=== PATIENT | female | born 1960 | race Caucasian/White ===

== ENCOUNTER 2016-12-27 12:11 | Emergency (ER) | payer OTHER ==
[2016-12-27 12:16] VITALS: TEMP 98; BMI 29.2
--- NOTE | 2016-12-27 12:21 | PDOC ---
History of Present Illness - General Chief Complaint: Chest Pain Stated Complaint: CHEST PAIN Time Seen by Provider: 12/27/16 12:20 History Source: Patient Exam Limitations: No Limitations - History of Present Illness Initial Comments: 12/27/16 14:56 56 yo has no primary physician sees Dr Chavira (Cardology), is on 4 meds to control her BP, has had four episodes of chest pain, diaphoresis and lightheadedness this morning, and, she just does not feel right. Most of these episodes happened at rest. Associated with some Nausea as well. Timing/Duration: 4-6 hours, intermittent Modifying Factors: improves with: other (nothing) Aspirin Received prior to arrival: Yes: no aspirin today Past History - Travel Traveled outside of the country in the last 30 days: No Close contact w/someone who was outside of country & ill: No - Past Medical History Allergies/Adverse Reactions: Allergies Allergy/AdvReac Type Severity Reaction Status Date / Time DAVID Inhibitors Allergy Severe Swelling Verified 12/27/16 12:12 [David Inhibitors] Home Medications: Ambulatory Orders Hydrochlorothiazide [Hydrodiuril] 25 mg PO DAILY #0 tablet 10/02/11 Amlodipine Besylate 10 mg PO DAILY 12/27/16 Hydralazine HCl 100 mg PO TID 12/27/16 Nebivolol HCl [Bystolic] 20 mg PO BID 12/27/16 Anemia: Yes (1999) HTN: Yes - Psycho/Social/Smoking Cessation Hx Anxiety: No Suicidal Ideation: No Smoking Status: No Smoking History: Never smoked Have you smoked in the past 12 months: No Number of Cigarettes Smoked Daily: 0 Hx Alcohol Use: Yes Drug/Substance Use Hx: No Substance Use Type: None Hx Substance Use Treatment: No Review of Systems - Review of Systems Able to Perform ROS?: Yes Is the patient limited Syrian proficient: No Constitutional: Yes: See HPI HEENTM: No: Symptoms Reported Respiratory: No: Symptoms reported Cardiac (ROS): Yes: See HPI ABD/GI: Yes: See HPI : No: Symptoms Reported Musculoskeletal: No: Symptoms Reported Integumentary: No: Symptoms Reported Neurological: No: Symptoms reported Psychiatric: No: Anxiety, Depression Hematologic/Lymphatic: No: Symptoms Reported All Other Systems: Reviewed and Negative *Physical Exam - Vital Signs Last Vital Signs Temp Pulse Resp BP Pulse Ox 98 F 77 18 129/78 100 12/27/16 12:12 12/27/16 12:12 12/27/16 12:12 12/27/16 12:12 12/27/16 12:12 - Physical Exam Comments: 12/27/16 15:15 56 you healthy appearing female, NAD, but Anxious/Fearful General Appearance: Yes: Nourished, Appropriately Dressed. No: Apparent Distress HEENT: positive: EOMI, MARLENE, Normal ENT Inspection. negative: Normal Voice Neck: positive: Tender, Trachea midline, Rigid, Supple Respiratory/Chest: positive: Lungs Clear, Normal Breath Sounds. negative: Chest Tender, Respiratory Distress Cardiovascular: positive: Regular Rhythm, Regular Rate Gastrointestinal/Abdominal: positive: Normal Bowel Sounds, Flat, Soft Lymphatic: negative: Adenopathy, Tenderness Musculoskeletal: positive: Normal Inspection Extremity: positive: Normal Capillary Refill, Normal Inspection, Normal Range of Motion Integumentary: positive: Normal Color, Dry, Warm Neurologic: positive: cobbler sole II-XII NML intact, Fully Oriented, Alert Heart Score/ECG Review - History History: Highly suspicious - Electrocardiogram EKG: Normal - Age Age: 45-65 - Risk Factors Risk Factors Heart Score: Yes Hx Hypertension - Troponin Troponin: </= normal limit ED Treatment Course - LABORATORY CBC & Chemistry Diagram: 12/27/16 12:28 12/27/16 12:28 Medical Decision Making - Medical Decision Making 12/27/16 15:[address] BILLS, Admit to hospitalist service, cardiology will be a consulting service 12/27/16 15:31 Dr Bills called back to tell us that patients primary care doctor is Dr Elder [facility] the patient tells me that she has no primary care doctor, in either case the patient is admitted to the [facility] hospitalist service in this instance. 12/27/16 15:55 Patient has decided after being seen by the scheduling clerk that she can not stay and she is signing out AMA. Risk of sudden cardiac and heart attack explained to patient and she understands that she is taking these risks upon herself. *DC/Admit/Observation/Transfer Diagnosis at time of Disposition: ACS (acute coronary syndrome) Chest pain Qualifiers: Chest pain type: unspecified Qualified Code(s): R07.9 - Chest pain, unspecified - Discharge Dispostion Disposition: AGAINST MEDICAL ADVICE Condition at time of disposition: Improved Admit: Yes
[2016-12-27 13:16] LABS: ALBUMIN 3.7 g/dl (3.5-5.0); ALK PHOS 76 U/L (32-92); ANION GAP 8 (8-16); BILIRUBIN,TOTAL 1.2 mg/dl (0.2-1.0); CALCIUM 9.8 mg/dl (8.4-10.2); CO2 24 mmol/L (22-28); CPK 114 IU/L (26-192); GLUCOSE,RANDOM 118 mg/dl (74-106); SGOT/AST 34 U/L (10-42); SGPT/ALT 50 U/L (10-40); TOT PROT 6.9 g/dl (6.4-8.3)
[2016-12-27 13:29] LABS: BASOPHIL 2.4 % (0-2.0); MCH 26.2 pg (25.7-33.7); MCHC 33.2 g/dl (32.0-36.0); MEAN PLT VOLUME 9.3 fl (7.5-11.1); NEUTROPHILS 47.6 % (42.8-82.8); PLATELET COUNT 280 K/MM3 (134-434); RDW 12.7 % (11.6-15.6); WHITE BLOOD COUNT 6.2 K/mm3 (4.0-10.8)
[2016-12-27 15:02] VITALS: BP 123/78; PULSE 65
[2016-12-27 15:11] LABS: TROPONIN I (DFP) < 0.03 ng/ml (0.03-0.50)
--- NOTE | 2016-12-27 15:45 | CON.CARD ---
Consult Consult Specialty:: Cardiology Referred by:: Elder Yañez MD Reason for Consultation:: Chest pain - History of Present Illness Chief Complaint: Chest pain History of Present Illness: 56 yo HF with h/o hypertensive cardiovascular disease with labile blood pressure presented for episodes of chest pain characterized as burning, associated with nausea, diaphoresis and lightheadedness this morning, since resolved, she denies dyspnea, true syncope, palpitations, orthopnea, PND or LE edema. 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 - History Source History Provided By: Patient Limitations to Obtaining History: No Limitations - Past Medical History Cardio/Vascular: Yes: HTN - Alcohol/Substance Use Hx Alcohol Use: Yes - Smoking History Smoking history: Never smoked Have you smoked in the past 12 months: No Aproximately how many cigarettes per day: 0 Home Medications - Allergies Allergies/Adverse Reactions: Allergies Allergy/AdvReac Type Severity Reaction Status Date / Time DAVID Inhibitors Allergy Severe Swelling Verified 12/27/16 12:12 [David Inhibitors] - Home Medications Home Medications: Ambulatory Orders Hydrochlorothiazide [Hydrodiuril] 25 mg PO DAILY #0 tablet 10/02/11 Amlodipine Besylate 10 mg PO DAILY 12/27/16 Hydralazine HCl 100 mg PO TID 12/27/16 Nebivolol HCl [Bystolic] 20 mg PO BID 12/27/16 Review of Systems - Review of Systems Cardiovascular: reports: Chest Pain Gastrointestinal: reports: Nausea Neurological: reports: Dizziness Vital Signs: Vital Signs Temperature 98 F 12/27/16 12:12 Pulse Rate 65 12/27/16 15:01 Respiratory Rate 16 12/27/16 13:59 Blood Pressure 123/78 12/27/16 15:01 O2 Sat by Pulse Oximetry (%) 100 12/27/16 15:01 Constitutional: Yes: No Distress, Calm Neck: Yes: Supple Respiratory: Yes: Regular, CTA Bilaterally Gastrointestinal: Yes: Normal Bowel Sounds, Soft Cardiovascular: Yes: Regular Rate and Rhythm JVD: No Carotid Bruit: No Heart Sounds: Yes: S1, S2 Murmur: Yes: Systolic Murmur, Grade 1 Edema: No - Other Data Labs, Other Data: CBC, BMP 12/27/16 12:28 12/27/16 12:28 Troponin, BNP 12/27/16 12:28 Troponin I < 0.03 L Troponin, BNP 12/27/16 12:28 Troponin I < 0.03 L NSR @ 71 LAE, LVH with repol abnl Imaging - Results Chest X-ray: Report Reviewed (NAD) Ultrasound: Report Reviewed (Neg for renal artery stenosis) Problem List - Problems (1) Chest pain Code(s): R07.9 - CHEST PAIN, UNSPECIFIED Qualifiers: Chest pain type: precordial pain Qualified Code(s): R07.2 - Precordial pain (2) Hypertensive cardiovascular disease Code(s): I11.9 - HYPERTENSIVE HEART DISEASE WITHOUT HEART FAILURE Qualifiers: Heart failure presence: without heart failure Qualified Code(s): I11.9 - Hypertensive heart disease without heart failure (3) Diastolic dysfunction Code(s): I51.9 - HEART DISEASE, UNSPECIFIED Assessment/Plan 06/30/2016 Echo: Mod cLVH with normal LV systolic fxn, mild MR, mild TR, mild- mod AR 1. Chest pain syndrome with need to r/o ischemia 2. Hypertensive cardiovascular disease 3. Diastolic dysfunction P:1. Ruling out for CO 2. She does not want to stay for inpatient stress testing, has appointment to see Dr. Grimes in office 12/28 2:30 PM to schedule outpatient stress testing 3. Continue Bystolic 20 bid, Norvasc 10 qd, Hydralazine 100 tid, HCTZ 25 qd 4. Thank you for consultative opportunity
--- NOTE | 2016-12-29 08:31 | EKG ---
Test Reason : Blood Pressure : / mmHG Vent. Rate : 071 BPM Atrial Rate : 071 BPM P-R Int : 164 ms QRS Dur : 098 ms QT Int : 464 ms P-R-T Axes : 055 -01 092 degrees QTc Int : 504 ms SINUS RHYTHM LEFT ATRIAL ENLARGEMENT LEFT VENTRICULAR HYPERTROPHY (per Wade criteria) PROLONGED QT ABNORMAL ECG WHEN COMPARED WITH ECG OF 01-OCT-2011 13:25, ST depression and T wave abnormalities are now present in LATERAL LEADS Confirmed by SUSAN VASQUEZ MD ([id number]) on 12/29/2016 8:31:02 AM Referred By: SALO RODRIGUEZ Confirmed By:SUSAN VASQUEZ MD
== END 2016-12-27 16:07 | disposition left against medical advice (07) ==
LOC: FER 12:11
DX: I24.9 Acute ischemic heart disease, unspecified (principal); R07.9 Chest pain, unspecified; I10 Essential (primary) hypertension; D64.9 Anemia, unspecified
CPT/HCPCS: 36415; 71010-TC; 80053; 84484; 85025; 93005; 99284-25

== ENCOUNTER 2020-07-03 11:22 | Emergency (ER) | payer OTHER ==
[2020-07-03 11:33] VITALS: TEMP 99; BMI 30.1
[2020-07-03 12:22] LABS: BASO % 2.5 % (0-2.0); HEMATOCRIT 45.1 % (32.4-45.2); HEMOGLOBIN 14.8 GM/dl (10.7-15.3); MCH 26.4 pg (25.7-33.7); MCHC 32.8 g/dl (32.0-36.0); MEAN CELL VOLUME 80.3 fl (80-96); MEAN PLT VOLUME 8.9 fl (7.5-11.1); MONO % 11.1 % (3.8-10.2); NEUT % 40.4 % (42.8-82.8); PLATELET COUNT 310 K/MM3 (134-434); RBC 5.61 M/mm3 (3.60-5.2); RDW 13.1 % (11.6-15.6); WHITE BLOOD COUNT 4.2 K/mm3 (4.0-10.8)
[2020-07-03 12:31] LABS: BILIRUBIN,TOTAL 1.4 mg/dl (0.2-1); CALCIUM 9.5 mg/dl (8.5-10); CREATININE 1.7 mg/dl (0.55-1.3); POTASSIUM 4.2 mmol/L (3.5-5.1); TOT PROT 7.4 g/dl (6.4-8.2)
[2020-07-03] MEDS ORDERED: diazePAM 5 MG TABLET PO ONE (13:26)
[2020-07-03 15:05] VITALS: BP 145/64; PULSE 65
== END 2020-07-03 15:05 | disposition home or self-care (01) ==
LOC: FER 11:22
DX: R53.1 Weakness (principal); D32.0 Benign neoplasm of cerebral meninges
CPT/HCPCS: 36415; 70450-TC; 71046-TC-FY; 80053; 82550; 84484; 85025; 93005; 99285-25

== ENCOUNTER 2020-11-01 13:30 | Emergency (ER) | payer OTHER ==
[2020-11-01 13:37] VITALS: BP 164/96; PULSE 69; TEMP 98.1; BMI 30.4
[2020-11-01] MEDS ORDERED: IBUPROFEN 600 MG TABLET (FP) PO ONE ×2 (14:17→14:36)
== END 2020-11-01 14:37 | disposition home or self-care (01) ==
LOC: JERFT 13:30
DX: M54.5 Low back pain (principal)
CPT/HCPCS: 99283-25